=== PATIENT | male | born 1950 | race Caucasian/White ===

== ENCOUNTER 2023-08-31 02:29 | Inpatient (IN) | payer MEDICARE, OTHER ==
[~2023-08-31] VITALS: Ht 170.2 cm; Wt 54.0 kg
[2023-08-31 03:16] LABS: BASOPHILS % (AUTO) 0.6 % (0.0-2.0); EOSINOPHILS # (AUTO) 0.1 K/uL (0.0-0.7); EOSINOPHILS % (AUTO) 2.8 % (0.0-6.0); HEMATOCRIT 39 % (39-51); HEMOGLOBIN 13.1 g/dL (13.5-17.5); LYMPHOCYTES # (AUTO) 1.6 K/uL (0.8-4.8); LYMPHOCYTES % (AUTO) 38.3 % (20.0-44.0); MEAN CORPUSCULAR HEMOGLOBIN 30 PG (26.0-33.0); MEAN CORPUSCULAR HGB CONC 34 g/dl (31.0-36.0); MEAN CORPUSCULAR VOLUME 88 fL (80-96); MONOCYTES # (AUTO) 0.4 K/uL (0.1-1.30); MONOCYTES % (AUTO) 8.8 % (2.0-12.0); NEUTROPHILS # (AUTO) 2.1 K/uL (1.8-8.9); NEUTROPHILS % (AUTO) 49.5 % (43.0-81.0); PLATELET COUNT (AUTO) 224 K/uL (150-450); RED BLOOD CELL COUNT(AUTO) 4.44 MIL/uL (4.5-6.0); RED CELL DISTRIBUTION WIDTH 12.8 % (11.5-15.0); WHITE BLOOD COUNT (AUTO) 4.3 K/uL (4.3-11.0)
[2023-08-31 03:31] LABS: ALANINE AMINOTRANSFERASE 11 U/L (12-78); ALCOHOL, BLOOD < 3 mg/dL (0-10); ALKALINE PHOSPHATASE 91 U/L (46-116); ASPARTATE AMINOTRANSFERASE 8 U/L (15-37); BILIRUBIN,DIRECT 0.1 mg/dL (0.0-0.2); BILIRUBIN,TOTAL 0.5 mg/dL (0.2-1.0); CARBON DIOXIDE 27 mmol/L (21-32); CHLORIDE 107 mmol/L (98-107); CREATININE 0.9 mg/dL (0.6-1.3); GLUCOSE 89 mg/dL (74-106); POTASSIUM 3.9 mmol/L (3.5-5.1); SODIUM SERUM 140 mmol/L (136-145); TOTAL PROTEIN, SERUM 6.8 g/dL (6.4-8.2); UREA NITROGEN, BLOOD 12 mg/dL (7-18)
[2023-08-31 04:09] LABS: ACETAMINOPHEN <10 ug/ml (10-30)
[2023-08-31 05:14] LABS: APPEARANCE,URINE CLEAR (CLEAR); BILIRUBIN,URINE 1+ (NEGATIVE); BLOOD, URINE NEGATIVE Ery/uL (NEGATIVE); COLOR,URINE YELLOW (YELLOW); KETONES,URINE 1+ mg/dL (NEGATIVE); LEUKOCYTE ESTERASE ,URINE NEGATIVE (NEGATIVE); NITRITE, URINE NEGATIVE (NEGATIVE); PROTEIN,URINE NEGATIVE (NEGATIVE); UGLUCOSE NEGATIVE (NEGATIVE)
[2023-08-31 05:15] LABS: ADD URINE CULTURE NO; AMPHETAMINE, URINE NEGATIVE (NEGATIVE); BACTERIA,URINE Rare /HPF (None Seen); BARBITURATE, URINE NEGATIVE (NEGATIVE); BENZODIAZEPINE, URINE NEGATIVE (NEGATIVE); CANNABINOID, URINE NEGATIVE (NEGATIVE); COCCAINE, URINE NEGATIVE (NEGATIVE); OPIATE, URINE NEGATIVE (NEGATIVE); PHENCYCLIDINE SCREEN,URINE NEGATIVE (NEGATIVE); RBC,URINE 0-2 /HPF (0-2); SQUAMOUS EPITHELIAL CELL,UR Few /HPF (None Seen); WBC,URINE 0-2 /HPF (0-3)
[2023-08-31] MEDS ORDERED: TAMS-12 PO (08:31)
[2023-08-31] MEDS ORDERED: ACET-868 PO (08:31)
[2023-08-31] MEDS ORDERED: MAGN400O6 PO (08:31)
[2023-08-31] MEDS ORDERED: MINE133E RC (08:31)
[2023-08-31] MEDS ORDERED: LISI10TA29 PO (08:31)
[2023-08-31] MEDS ORDERED: LEVE500T9 PO (08:31)
[2023-08-31] MEDS ORDERED: OXYC5CAP18 PO (08:31)
[2023-08-31] MEDS ORDERED: LORA-258 PO (08:31)
[2023-08-31] MEDS ORDERED: CYAN500T9 PO (08:31)
[2023-08-31] MEDS ORDERED: DIVA125C2 PO (08:31)
[2023-08-31] MEDS ORDERED: DOCU-141 PO (08:31)
[2023-08-31] MEDS ORDERED: ESCI10TA PO (08:31)
[2023-08-31] MEDS ORDERED: PANT40TA2 PO (08:31)
[2023-08-31] MEDS: DIVALPROEX SODIUM 125 MG CAP.SPRINK PO SCH (09:00)
[2023-08-31] MEDS ORDERED: ESCITALOPRAM OXALATE (10 MG) 10 MG TABLET ONE (09:22)
[2023-08-31] MEDS: ESCITALOPRAM OXALATE (10 MG) 10 MG TABLET PO ONE (09:28)
[2023-08-31 10:30] VITALS: BP 119/73; TEMP 98.2; O2SAT 96
[2023-08-31] MEDS ORDERED: MAG HYDROX/AL HYDROX/SIMETH 30 ML UDC PO PRN (10:30)
[2023-08-31] MEDS ORDERED: ACETAMINOPHEN 325 MG TABLET PO PRN (10:30)
[2023-08-31] MEDS ORDERED: MAGNESIUM HYDROXIDE 30 ML UDC PO PRN ×2 (10:30→12:00)
[2023-08-31] MEDS: BLOOD SUGAR DIAGNOSTIC 1 EACH STRIP IN ONE (11:36)
[2023-08-31] MEDS ORDERED: MINERAL OIL 133 ML (PYXIS) 1 EA ENEMA RC PRN (12:00)
[2023-08-31] MEDS ORDERED: oxyCODONE IR immediate release 5 MG PO PRN (12:00)
[2023-08-31] MEDS: LEVETIRACETAM (250 MG) 250 MG TABLET PO SCH (12:22)
[2023-08-31 16:00] VITALS: BP 102/73; TEMP 98; O2SAT 95
[2023-08-31] MEDS ORDERED: Z GUARD REMEDY 4 OZ OINT TP PRN (16:00)
[2023-08-31] MEDS: DOCUSATE SODIUM 100 MG CAPSULE PO SCH (17:11)
[2023-08-31] MEDS: Z GUARD REMEDY 4 OZ OINT TP SCH (20:33)
[2023-08-31 21:06] VITALS: BP 114/76; TEMP 98.1; O2SAT 98
[2023-08-31] MEDS: TAMSULOSIN 0.4 MG CAP.SR.24H PO SCH (21:15)
[2023-09-01 08:00] VITALS: BP 111/74; TEMP 97.9; O2SAT 99
[2023-09-01 08:36] LABS: BILIRUBIN,TOTAL 0.4 mg/dL (0.2-1.0); CALCIUM, SERUM 9.1 mg/dL (8.5-10.1); CREATININE 0.8 mg/dL (0.6-1.3); POTASSIUM 3.7 mmol/L (3.5-5.1)
[2023-09-01 08:39] LABS: CHOLESTEROL 178 mg/dL (<200); HDL CHOLESTEROL 35 mg/dL (40-60); LDL 123 mg/dL (0-99); TRIGLYCERIDES 106 mg/dL (30-150)
[2023-09-01] MEDS: LISINOPRIL (10MG) 10 MG TABLET PO SCH (09:03)
[2023-09-01] MEDS: PANTOPRAZOLE 40 MG TABLET.DR PO SCH (09:03)
[2023-09-01] MEDS: ESCITALOPRAM OXALATE (10 MG) 10 MG TABLET PO SCH (09:04)
[2023-09-01 11:31] LABS: CREATININE 0.8 mg/dL (0.6-1.3)
[2023-09-01 16:00] VITALS: BP 105/73; TEMP 98.7; O2SAT 99
[2023-09-01 21:50] VITALS: BP 110/74; TEMP 98.2; O2SAT 99
[2023-09-02 08:00] VITALS: BP 103/60; TEMP 98; O2SAT 98
[2023-09-02] MEDS: ESCITALOPRAM OXALATE (10 MG) 10 MG TABLET PO SCH (09:58)
[2023-09-02] MEDS: ENSURE ENLIVE CHOC 237 ML CAN PO SCH (12:58)
[2023-09-02 13:45] LABS: THYROID STIMULATING HORMONE 0.854 uIU/mL (0.358-3.74)
[2023-09-02 16:00] VITALS: BP 104/64; TEMP 97.7; O2SAT 96
[2023-09-02 20:20] VITALS: BP 111/76; TEMP 98.2; O2SAT 95
[2023-09-02] MEDS: ATORVASTATIN 10 MG TABLET PO SCH (21:07)
[2023-09-03] MEDS: TEMAZEPAM 7.5 MG CAPSULE PO PRN (00:07)
[2023-09-03 07:09] LABS: FOLIC ACID 5.2 ng/mL (>3.0)
[2023-09-03 08:00] VITALS: BP 100/52; TEMP 98.7; O2SAT 98
[2023-09-03 16:00] VITALS: BP 113/81; TEMP 97.8; O2SAT 98
[2023-09-03 20:35] VITALS: BP 115/63; TEMP 98.6; O2SAT 96
[2023-09-04 07:46] LABS: BASOPHILS % (AUTO) 0.6 % (0.0-2.0); EOSINOPHILS # (AUTO) 0.1 K/uL (0.0-0.7); HEMATOCRIT 42 % (39-51); HEMOGLOBIN 14.6 g/dL (13.5-17.5); LYMPHOCYTES # (AUTO) 1.5 K/uL (0.8-4.8); LYMPHOCYTES % (AUTO) 29.8 % (20.0-44.0); MEAN CORPUSCULAR HEMOGLOBIN 30 PG (26.0-33.0); MEAN CORPUSCULAR HGB CONC 35 g/dl (31.0-36.0); MEAN CORPUSCULAR VOLUME 88 fL (80-96); MONOCYTES # (AUTO) 0.4 K/uL (0.1-1.30); MONOCYTES % (AUTO) 8.8 % (2.0-12.0); NEUTROPHILS # (AUTO) 2.8 K/uL (1.8-8.9); NEUTROPHILS % (AUTO) 57.8 % (43.0-81.0); PLATELET COUNT (AUTO) 261 K/uL (150-450); RED BLOOD CELL COUNT(AUTO) 4.83 MIL/uL (4.5-6.0); RED CELL DISTRIBUTION WIDTH 13.1 % (11.5-15.0); WHITE BLOOD COUNT (AUTO) 4.9 K/uL (4.3-11.0)
[2023-09-04 08:00] VITALS: BP 129/86; TEMP 97.9; O2SAT 97
[2023-09-04 08:34] LABS: VALPROIC ACID 16 ug/mL (50-100)
[2023-09-04 08:42] LABS: ALANINE AMINOTRANSFERASE 13 U/L (12-78); ALBUMIN 3.3 g/dL (3.4-5.0); ALKALINE PHOSPHATASE 100 U/L (46-116); ASPARTATE AMINOTRANSFERASE 9 U/L (15-37); BILIRUBIN,TOTAL 0.5 mg/dL (0.2-1.0); CALCIUM, SERUM 9.4 mg/dL (8.5-10.1); CARBON DIOXIDE 25 mmol/L (21-32); CHLORIDE 105 mmol/L (98-107); GLUCOSE 133 mg/dL (74-106); POTASSIUM 3.9 mmol/L (3.5-5.1); SODIUM SERUM 141 mmol/L (136-145); TOTAL PROTEIN, SERUM 7.1 g/dL (6.4-8.2); UREA NITROGEN, BLOOD 12 mg/dL (7-18)
[2023-09-04 16:00] VITALS: BP 124/83; TEMP 98.1; O2SAT 100
[2023-09-04 20:00] VITALS: BP 131/82; TEMP 98.3; O2SAT 100
[2023-09-04] MEDS: DIVALPROEX SODIUM 500 MG TABLET.DR PO SCH (22:26)
[2023-09-05] MEDS: ACETAMINOPHEN 325 MG TABLET PO PRN (00:03)
[2023-09-05 08:00] VITALS: BP 106/72; TEMP 98.2; O2SAT 98
[2023-09-05] MEDS: DIVALPROEX SODIUM 125 MG CAP.SPRINK PO SCH (08:12)
[2023-09-05 16:00] VITALS: BP 117/71; TEMP 97.6; O2SAT 98
[2023-09-05 20:00] VITALS: BP 113/62; TEMP 98.7; O2SAT 97
[2023-09-06 08:00] VITALS: BP 100/63; TEMP 97.8; O2SAT 100
[2023-09-06] MEDS: LORAZEPAM 0.5 MG TABLET PO PRN (08:40)
[2023-09-06 16:00] VITALS: BP_SYST 119; BP_SYST 126; BP_DIAS 76; BP_DIAS 90; TEMP 98; TEMP 98.9; O2SAT 96; O2SAT 98
[2023-09-06 21:46] VITALS: BP 110/73; TEMP 97.6; O2SAT 98
[2023-09-07 08:00] VITALS: BP 118/93; TEMP 97.5; O2SAT 93
[2023-09-07] MEDS: DIVALPROEX SODIUM 500 MG TABLET.DR PO SCH (09:00)
[2023-09-07 16:00] VITALS: BP 100/76; TEMP 97.9; O2SAT 95
[2023-09-07 20:51] VITALS: BP 106/76; TEMP 97.9; O2SAT 95
[2023-09-08 08:00] VITALS: BP 100/62; TEMP 97.9; O2SAT 95
[2023-09-08] MEDS: DIVALPROEX SODIUM 125 MG CAP.SPRINK PO SCH (09:05)
[2023-09-08 16:00] VITALS: BP 102/70; TEMP 98.6; O2SAT 96
[2023-09-08 20:28] VITALS: BP 126/77; TEMP 98.2; O2SAT 95
[2023-09-09 08:00] VITALS: BP 125/80; TEMP 97.9; O2SAT 96
[2023-09-09 16:00] VITALS: BP 104/75; TEMP 97.9; O2SAT 98
[2023-09-09 21:33] VITALS: BP 104/76; TEMP 98; O2SAT 96
[2023-09-10 08:00] VITALS: BP 98/56; TEMP 98.7; O2SAT 96
[2023-09-10 16:00] VITALS: BP 123/73; TEMP 97.7; O2SAT 99
[2023-09-10 22:15] VITALS: BP 114/77; TEMP 98.8; O2SAT 95
[2023-09-11 08:00] VITALS: BP 104/61; TEMP 97.6; O2SAT 96
[2023-09-11 16:00] VITALS: BP 105/76; TEMP 97.8; O2SAT 94
[2023-09-11 20:00] VITALS: BP 109/64; TEMP 98.5; O2SAT 98
[2023-09-12 08:00] VITALS: BP 117/70; TEMP 98; O2SAT 94
[2023-09-12 16:00] VITALS: BP 110/81; TEMP 98; O2SAT 98
== END 2023-09-12 17:40 | DRG 885 ==
LOC: ER 02:41 → GPS 10:13
PROVIDERS: ADMIT Psychiatry & Neurology Psychosomatic Medicine; ATTEND Internal Medicine
DX: F39 Unspecified mood [affective] disorder (principal); F01.53 Vascular dementia, unspecified severity, with mood disturbance; U07.1 COVID-19; F01.518 Vascular dementia, unspecified severity, with other behavioral disturbance; I10 Essential (primary) hypertension; K21.9 Gastro-esophageal reflux disease without esophagitis; G40.909 Epilepsy, unspecified, not intractable, without status epilepticus; G89.4 Chronic pain syndrome; N40.0 Benign prostatic hyperplasia without lower urinary tract symptoms; Z87.891 Personal history of nicotine dependence; Z91.148 Patient's other noncompliance with medication regimen for other reason; Z91.81 History of falling; R29.6 Repeated falls; Z87.820 Personal history of traumatic brain injury
CPT/HCPCS: 36415; 70450-TC; 80048-TC; 80053-TC; 80061-TC; 80076-TC; 80164-TC; 81001; 82565-TC; 82607-TC; 82962-TC; 83921; 84439-TC; 84443-TC; 85025-TC; 92526; 92611-TC; 97116-TC; 97530-TC; G0480